=== PATIENT | female | born 1955 | race Caucasian/White ===

== ENCOUNTER 2017-01-10 12:27 | Emergency (ER) | payer OTHER ==
[~2017-01-10] VITALS: Ht 157.5 cm; Wt 55.8 kg
--- NOTE | 2017-01-10 13:35 | RADIOLOGY REPORT ---
EXAMINATION: XR ANKLE, LEFT CLINICAL INFORMATION: Pain and swelling of the left ankle status post fall. COMPARISON: No relevant prior imaging is available. TECHNIQUE: AP, lateral, and mortise views of the left ankle. FINDINGS: There is acute minimally displaced transverse fracture through the lateral malleolus of the left ankle and there is associated regional soft tissue swelling. A tiny linear fragment is visualized at the anterior margin of the tibial plafond on the lateral projection that may be related to acute or old injury. The talar dome is intact. No abnormal widening of the ankle mortise. The calcaneus is intact. IMPRESSION: Acute minimally displaced transverse fracture through the lateral malleolus of the left ankle. No dislocation.
--- NOTE | 2017-01-10 15:16 | ED ANKLE/FOOT INJURY COMPLAINT ---
History of Present Illness General Chief Complaint: Lower Extremity Injury Stated Complaint: "FELL AND TWISTED LEFT ANKLE" Source: patient Exam Limitations: no limitations Vital Signs & Intake/Output Vital Signs & Intake/Output Vital Signs Date Time Temp Pulse Resp B/P B/P Pulse O2 O2 Flow FiO2 Mean Ox Delivery Rate 01/10 1302 98.4 73 18 119/74 100 Room Air Allergies Coded Allergies: NO KNOWN ALLERGIES (03/11/11) Triage Note: C/O PAIN WITH SWELLING TO LEFT ANKLE AFTER FALLING DOWN 1 STEP. ANKLE SWOLLEN. REFUSES PAIN MEDS IN TRIAGE. Triage Nurses Notes Reviewed? yes Occurred: just prior to arrival Duration: hour(s): (2) Timing: remote history Severity: moderate Severity Numbers: 6 Pain/Injury Location: Left: Ankle. Method of Injury: twisted No Modifying Factors: none Modifying Factors: Improves With: immobilization. Worsens With: movement. HPI: Patient is a 61-year-old female presenting to the emergency Department chief complaint of left ankle pain that thing going on for the past couple of hours after she twisted her left ankle while going down the stairs. Denies any other injury. Pain is moderate achy throbbing worse with weightbearing and range of motion. History of similar injury to the same ankle in the past. She has had an avulsion fracture to this ankle in the past. No numbness or tingling. Denies calf pain. Denies taking anything prior to arrival to help with symptoms. Past History Travel History Traveled to [place] past 21 day No Medical History Any Pertinent Medical History? see below for history Surgical History Surgical History: non-contributory Psychosocial History What is your primary language Polish Tobacco Use: Never used ETOH Use: denies use Family History Hx Contributory? No Review of Systems Review of Systems Constitutional: Reports: no symptoms. Comments Review of systems: See HPI, All other systems negative. Constitutional, no chills fever or weight loss HEENT: No visual changes no sore throat no congestion Cardiovascular: No chest pain ,palpitation Skin, no jaundice no rashes Respiratory: No dyspnea cough GI: No nausea no vomiting Muscle skeletal: no back pain, no neck pain, Neurologic: No numbness Psych: No stress anxiety or depression,. Heme/endocrine: No bruising no bleeding no polyuria or polydipsia Immunology: No splenectomy or history of AIDS Physical Exam Physical Exam General Appearance: well developed/nourished, no apparent distress, alert, awake , comfortable Leg/Knee/Thigh Left: normal range of motion, normal inspection Comments: Well-developed well-nourished no apparent distress. HEENT: Atraumatic, extraocular motion intact Neck: Supple, no lymphadenopathy Back: Nontender Respiratory: No respiratory distress Extremities: left Ankle with moderate tenderness laterally over the lateral ligaments. No bony tenderness. No medial tenderness. Range of motion is near full but somewhat limited due to pain. No instability is noted. Skin is intact, mild swelling and ecchymosis laterally. The foot is neurovascularly intact with sensation and motor grossly intact. There is no foot tenderness or fifth metatarsal tenderness. Able to move all toes. Neuro: Alert and oriented x3, motor and sensory intact in lower ext bilaterally. Psych: Mood affect normal, normal memory normal judgment. Progress Differential Diagnosis: fracture, dislocation, sprain, contusion Plan of Care: Patient will be placed in splint. Orthopedic follow-up. Educated on wresting icing and elevating. Patient will take [id number] Motrin and Tylenol as directed. Given crutches as well. Diagnostic Imaging: Viewed by Me: Radiology Read. Discussed w/RAD: Radiology Read. Radiology Impression: PATIENT: KOBI CONNOR PRESENT AGE: 61 PATIENT ACCOUNT NO: [id number] : 55 LOCATION: [facility] ORDERING PHYSICIAN: KEISHA MAHARAJ DO (TBS) SERVICE DATE: 01/10/179653 EXAM TYPE: RAD - XRY-ANKLE 3 OR MORE VIEWS L EXAMINATION: XR ANKLE, LEFT CLINICAL INFORMATION: Pain and swelling of the left ankle status post fall. COMPARISON: No relevant prior imaging is available. TECHNIQUE: AP, lateral, and mortise views of the left ankle. FINDINGS: There is acute minimally displaced transverse fracture through the lateral malleolus of the left ankle and there is associated regional soft tissue swelling. A tiny linear fragment is visualized at the anterior margin of the tibial plafond on the lateral projection that may be related to acute or old injury. The talar dome is intact. No abnormal widening of the ankle mortise. The calcaneus is intact. IMPRESSION: Acute minimally displaced transverse fracture through the lateral malleolus of the left ankle. No dislocation. DICTATED BY: JOSUÉ GROVES,CYNTHIA Mcnulty DATE/TIME DICTATED:01/10/171326 CONTINUITY WRITER:LUDA DATE/TIME TRANSCRIBED:01/10/171326 CONFIDENTIAL, DO NOT COPY WITHOUT APPROPRIATE AUTHORIZATION. Departure Departure Time of Disposition: 1523 Disposition: HOME OR SELF CARE Condition: Stable Clinical Impression Primary Impression: Ankle fracture Qualifiers: Encounter type: initial encounter Fracture type: closed Laterality: left Qualified Code: S82.892A - Other fracture of left lower leg, initial encounter for closed fracture Referrals: CHIP GUNN DO (PCP/Family) LACY GROVES,WALLY Contreras Additional Instructions: Follow-up with orthopedics call to make an appointment. Rest ice and elevate ankle. Keep splint on until follow-up. Use crutches for support. Return for worsening symptoms or concerns. Take [id number] Tylenol and Motrin as directed. PATIENT: KOBI CONNOR PRESENT AGE: 61 PATIENT ACCOUNT NO: [id number] : 55 LOCATION: [facility] ORDERING PHYSICIAN: KEISHA MAHARAJ DO (TBS) SERVICE DATE: 01/10/17 EXAM TYPE: RAD - XRY-ANKLE 3 OR MORE VIEWS L EXAMINATION: XR ANKLE, LEFT CLINICAL INFORMATION: Pain and swelling of the left ankle status post fall. COMPARISON: No relevant prior imaging is available. TECHNIQUE: AP, lateral, and mortise views of the left ankle. FINDINGS: There is acute minimally displaced transverse fracture through the lateral malleolus of the left ankle and there is associated regional soft tissue swelling. A tiny linear fragment is visualized at the anterior margin of the tibial plafond on the lateral projection that may be related to acute or old injury. The talar dome is intact. No abnormal widening of the ankle mortise. The calcaneus is intact. IMPRESSION: Acute minimally displaced transverse fracture through the lateral malleolus of the left ankle. No dislocation. DICTATED BY: CYNTHIA MOSES MD DATE/TIME DICTATED:01/10/171326 CONTINUITY WRITER:LUDA DATE/TIME TRANSCRIBED:01/10/171326 CONFIDENTIAL, DO NOT COPY WITHOUT APPROPRIATE AUTHORIZATION. <Electronically signed in Other Vendor System> SIGNED BY: CYNTHIA MOSES MD 01/10 9295 Departure Forms: Customer Survey General Discharge Information Procedures Splinting Location: left ankle Manual Alignment Performed: No Hand-Made Type: orthoglass Splint: posterior walking Splint Applied By: splint applied by me Pre-Proc Neuro Vasc Exam: normal Post-Proc Neuro Vasc Exam: normal Progress: Tolerated procedure well.
[2017-01-10 16:06] VITALS: BP 109/59
[2017-01-10] MEDS ORDERED: VITAMIN D31000 UNI2 PO (16:06)
[2017-01-10] MEDS ORDERED: RED YEAST RICE600 MG PO (16:06)
[2017-01-10] MEDS ORDERED: FISH OIL300 MG PO (16:07)
== END 2017-01-10 16:31 ==
LOC: ERH 12:27
DX: S82.62XA Displaced fracture of lateral malleolus of left fibula, initial encounter for closed fracture (principal); X50.9XXA Other and unspecified overexertion or strenuous movements or postures, initial encounter; Y93.01 Activity, walking, marching and hiking; Y92.9 Unspecified place or not applicable
CPT/HCPCS: 73610-LT